=== PATIENT | male | born 1970 | race Caucasian/White ===

== ENCOUNTER 2024-12-30 08:31 | Emergency (ER) | payer OTHER, SELFPAY ==
[2024-12-30 08:41] VITALS: BP 121/84
--- NOTE | 2024-12-30 09:42 | CON.NEURO4 ---
Addendum entered and electronically signed by Agustin Padgett MD 12/31/24 13:04:
I discussed the patient's assessment and management plan with Nurse Practitioner Caitlyn Tran. I also saw and examined the patient on 12/30/2024.
The patient presented with a complaint of right arm numbness that started about 6 days prior to presentation to the ED, and he also developed left-sided headache one day prior to presenting to the ED.
His Neurological examination was normal when he was seen. MRI brain did not show an acute infarct. The patient felt much better prior to discharge after treatment, and a repeat MRI brain in 3 months was recommended to follow up on the left frontal
and left temporal lobe white matter lesions. Also a MRI cervical spine was recommended as an outpatient, given the history that the patient regularly lifts heavy weights. He will also follow up in Neurology clinic in about 4 weeks.
Original Note:
Consultation - Neurology 4
-
CONSULTING PHYSICIAN: Agustin Padgett MD
REFERRING PHYSICIAN: ER/Dr. Lott
DICTATED BY: GUS Herman
DATE/TIME OF REQUEST: 12/30/24
DATE/TIME OF CONSULTATION: 12/30/24
Reason for Consultation: Right arm paresthesias, left-sided headache
History of Present Illness:
This is a 54-year-old right-handed male who has presented to the hospital with report of right arm paresthesias and a left-sided headache. Patient reports that six days ago on 12/23/24 he woke up in the morning and noticed that his right arm was
numb. The numbness included his entire right hand extending up his right arm a few inches past his elbow. This persisted for several days, and then yesterday (12/29/24) around 1500 he reports that he developed a left-sided headache behind his left
eye in addition to left scleral redness. He notes photophobia and mildly blurred vision in his left eye only. His headache worsened this morning, prompting him to come to the ER for evaluation. He denies any dizziness, speech/swallow difficulty, and
weakness. He denies any history of migraines and very rarely gets a headache. He exercises frequently including weight lifting but denies any recent injuries and neck/back pain. He is not taking any blood-thinning medications.
Past Medical History: Diverticulosis.
Surgical History: Denies.
Family History: Denies.
Social History: Former smoker.
Allergies: Ondansetron.
Home Medications: None.
Review of Symptoms:
Patient denies any fever, chest pain, shortness of breath, GI or symptoms.
�Per the HPI.�All systems are reviewed negative except above.
Physical Exam:
The patient is afebrile, abdomen is nondistended, breathing is unlabored
NIH Stroke Scale:
I performed the NIH stroke scale on the patient on 12/30/24 at 0945. The patient scored 1 points on the NIH stroke scale assessment, which were assigned as follows: See below.
Neurologic Examination:
The patient is awake, alert and oriented x 3. He is able to follow commands and answer questions appropriately. There is no aphasia or dysarthria. On cranial nerve assessment, pupils are 3 mm bilateral, round and reactive to light and
accommodation. Left eye sclera is red. Visual camacho are full. Extraocular movements are intact. Facial sensations are intact and bilaterally symmetrical, there is no facial asymmetry. Hearing is intact bilaterally to normal conversation volume.
Tongue palate and uvula are midline. Sternocleidomastoid strengths are full bilaterally. Motor strengths are 5/5 bilateral upper and lower extremities on medical research [place] scale. There is no drift or involuntary movement noted. Sensations of
touch is reduced in the right arm. There was no extinction noted on double simultaneous stimulation. Coordination is intact by finger to nose bilaterally.
Lab Results: See below.
Neuro Imaging: None.
Differentials for the patient's presentation include:
1. Right arm paresthesias and left-sided headache; etiology of symptoms is possibly migraine with aura, although given no history of this cannot entirely exclude small ischemic stroke, demyelinating disease, metabolic disturbance, and less likely
dissection given weight-lifting but absence of headache.
Patient has the following risk factors for their symptoms: None.
IV Tenecteplase/IAT candidacy: He is not a candidate due to symptom onset 6 days ago and low NIHSS.
Recommendations:
-CTA head/neck pending.
-Providing migraine cocktail benadryl, toradol, reglan.
-If symptoms do not resolve, would consider MRI brain with and w/o contrast.
-Checking blood work for metabolic abnormalities.
-Will follow pending results.
Discussed patient care with: Dr. Padgett, Dr. Lott, the patient
Vital Signs and Labs
-
Vital Signs and Labs:
Vital Signs
Temp Pulse Resp BP Pulse Ox
98.7 F 74 18 121/84 97
12/30/24 08:41 12/30/24 08:41 12/30/24 08:41 12/30/24 08:41 12/30/24 08:41
Lab Results
12/30/24 09:41
12/30/24 09:41
Sodium 138 mmol/L (135-145) 12/30/24 09:41
Potassium 4.3 mmol/L (3.5-5.1) 12/30/24 09:41
BUN 15 mg/dl (9-20) 12/30/24 09:41
Glucose 97 mg/dl (70-99) 12/30/24 09:41
Calcium 8.8 mg/dl (8.4-10.2) 12/30/24 09:41
NIH Stroke Score
Subsequent NIH Scale
Date of Subsequent NIH Scale: 12/30/24
Time of Subsequent NIH Scale: 09:45
NIH Stroke Score
Level of Consciousness: 0 - Alert
LOC Questions: 0-Answers both correctly
LOC Commands: 0-Performs both correctly
Best Horizontal Gaze: 0-Normal
Visual Camacho: 0=Normal, no visual loss
Facial Palsy: 0=Normal, symmetrical
Motor - Right Arm: 0=No drift 10 seconds
Motor - Left Arm: 0=No drift 10 seconds
Motor - Right Le-No drift 5 seconds
Motor - Left Le-No drift 5 seconds
Limb Ataxia: 0-Absent
Sensation: 1-Mild loss
Best Language: 0-No aphasia
Dysarthria: 0-Normal
Extinction and Inattention: 0-No abnormality
NIH Total Score:: 1
Modified [place] (mRS) Score
Modified Perez Scale (mRS): No significant disability. Able to carry out usual activities.
Score: 1
Alteplase Contraindication
Inclusion and Exclusion criteria reviewed: Yes
Reasons for NON-Tx with Thrombolytics ABSOLUTE Exclusions: Greater than 4.5 hrs from onset of sxs
IAT Contraindications: NIHSS < 6
[2024-12-30] MEDS: NSS 500 IV (09:45)
[2024-12-30] MEDS: BENADRYL 12.5 MG IV (09:48)
[2024-12-30] MEDS: REGLAN 10 MG IV (09:51)
[2024-12-30] MEDS: TORADOL 15 MG IV (09:54)
[2024-12-30 09:55] LABS: Hematocrit 49.5 % (39.0-52.0); Hemoglobin 16.7 g/dL (13.0-18.0); Mean Corp Hgb Conc. 33.7 g/dL (33.0-37.0); Mean Corpuscular Volume 89.0 fL (80.0-94.0); Nucleated Red Blood Cells % 0 % (-); Platelet Count 250 10^3/uL (130-400); Red Cell Dist. Width 13.2 % (11.5-14.5)
[2024-12-30 10:22] LABS: ALT (SGPT) 21 U/L (0-50); AST (SGOT) 26 U/L (17-59); Albumin 3.9 g/dl (3.5-5.0); Alkaline Phosphatase 49 U/L (38-126); Blood Urea Nitrogen 15 mg/dl (9-20); C-Reactive Protein < 5.00 mg/L (0.0-10.00); Calcium 8.8 mg/dl (8.4-10.2); Carbon Dioxide 28 mmol/L (22-30); Chloride 105 mmol/L (98-107); Glucose 97 mg/dl (70-99); Magnesium 2.0 mg/dl (1.6-2.3); Potassium 4.3 mmol/L (3.5-5.1); Sodium 138 mmol/L (135-145); Total Protein 6.2 g/dl (6.3-8.2); eGFR > 60.00
--- NOTE | 2024-12-30 10:33 | ED.GENMED ---
History of Present Illness
<Myron Lott MD - Last Filed: 12/30/24 13:44>
General
Chief Complaint: Numbness
Source: patient
Exam Limitations: none
Time Seen by Provider: 12/30/24 09:16
Nursing documentation reviewed up to this point in time: agreed with
History of Present Illness
History of Present Illness:
Patient presents to ED secondary to 4-day history of right arm numbness sensation, along with pain behind left eye with redness over the past 24 hours. Denies dizziness. Denies blurred vision. Denies nausea or vomiting. Denies difficulty with
ambulation. Denies weakness. Denies recent illness. Denies neck pain. Denies previous history of similar symptoms. Patient is otherwise healthy and works out at the gym frequently, including weightlifting. Denies injuries.
Review of Systems
<Myron Lott MD - Last Filed: 12/30/24 13:44>
Review of Systems
Allergies reviewed?: Yes
All Other Systems: ROS reviewed and negative except as documented in HPI and ROS
Constitutional: Reports no symptoms
Cardiac: Reports no symptoms
ABD/GI: Reports no symptoms
Musculoskeletal: Reports no symptoms
Skin: Reports no symptoms
Neurological: Reports numbness; Denies dizzy, headache or weakness
Phy Exam
<Myron Lott MD - Last Filed: 12/30/24 13:44>
Physical Exam
Physical Exam:
Physical Exam
General: no apparent distress, not acutely ill. afebrile
Head: nc/at. eomi. perrla. left eye injected conjunctiva noted
Neck: supple. normal range of motion.
Heart: s1/s2 regular rate and rhythm
Lungs: no acute respiratory distress. clear bilaterally
Abdomen: normal bowel sounds. not tender.
Neuro: alert and oriented x 3. Decreased sensation noted over right side of face and RUE. No focal weakness. no facial droop
Skin: no rash
Psychiatric: well kept. interactive and cooperative
Extremities: no edema. no calf tenderness.
Course
<Myron Lott MD - Last Filed: 12/30/24 13:44>
Orders/Labs/Results
Orders:
Orders
12/30/24 09:34
Diphenhydramine [Benadryl] 12.5 mg IV NOW STA
Ketorolac [Toradol] 15 mg IV NOW STA
Metoclopramide [Reglan] 10 mg IV NOW STA
12/30/24 09:35
0.9% Sodium Chloride 500 ml [Nss] 500 ml IV BOLUS
12/30/24 09:41
CBC/With ESR Urgent
CRP [C-Reactive Protein] Urgent
Cardiovascular Evaluation Urgent
Comment: ADD ON
Comprehensive Metabolic Panel Urgent
Ferritin Urgent
Comment: ADD ON
Folate Urgent
Comment: ADD ON
Glycohemoglobin (HgbA1c) Urgent
Magnesium Urgent
TSH Reflex To Free T4 Urgent
Comment: ADD ON
Vitamin B12 Urgent
Comment: ADD ON
12/30/24 10:25
CT Head & Neck Angio W/wo IV Urgent
Comment:
Reason For Exam: headache/RUE numbness w weaknes
12/30/24 11:00
Add On- LAB Routine
Tests Added?: folate, ferritin, TSH reflex, B12, lipid panel, hbA1c
12/30/24 12:31
Acetaminophen [Tylenol] 1,000 mg PO NOW STA
HYDROmorphone [Dilaudid] 0.5 mg IV NOW STA
12/30/24 12:32
MR Brain W/o & With Contrast Routine
Comment:
Reason For Exam: L headache, R arm paresthesias
Recent pill cam endoscopy?: No
Abnormal Lab Results
12/30/24
09:41
Absolute Monos (auto) 0.7 H 10^3/uL
(0.1-0.6)
Monocytes % 11.2 H %
(1.7-9.3)
Total Protein 6.2 L g/dl
(6.3-8.2)
12/30/24 09:41
12/30/24 09:41
Vital Signs
Initial and Last Documented VS:
Initial Vital Signs
Temp Pulse Resp BP Pulse Ox
98.7 F 74 18 121/84 97
12/30/24 08:41 12/30/24 08:41 12/30/24 08:41 12/30/24 08:41 12/30/24 08:41
Last Documented Vital Signs
Temp Pulse Resp BP Pulse Ox
98.7 F 59 15 135/75 99
12/30/24 08:41 12/30/24 14:31 12/30/24 13:27 12/30/24 14:27 12/30/24 14:31
<Willem Morrell, DO - Last Filed: 12/30/24 16:06>
Orders/Labs/Results
Orders:
Orders
12/30/24 09:34
Diphenhydramine [Benadryl] 12.5 mg IV NOW STA
Ketorolac [Toradol] 15 mg IV NOW STA
Metoclopramide [Reglan] 10 mg IV NOW STA
12/30/24 09:35
0.9% Sodium Chloride 500 ml [Nss] 500 ml IV BOLUS
12/30/24 09:41
CBC/With ESR Urgent
CRP [C-Reactive Protein] Urgent
Cardiovascular Evaluation Urgent
Comment: ADD ON
Comprehensive Metabolic Panel Urgent
Ferritin Urgent
Comment: ADD ON
Folate Urgent
Comment: ADD ON
Glycohemoglobin (HgbA1c) Urgent
Magnesium Urgent
TSH Reflex To Free T4 Urgent
Comment: ADD ON
Vitamin B12 Urgent
Comment: ADD ON
12/30/24 10:25
CT Head & Neck Angio W/wo IV Urgent
Comment:
Reason For Exam: headache/RUE numbness w weaknes
12/30/24 11:00
Add On- LAB Routine
Tests Added?: folate, ferritin, TSH reflex, B12, lipid panel, hbA1c
12/30/24 12:31
Acetaminophen [Tylenol] 1,000 mg PO NOW STA
HYDROmorphone [Dilaudid] 0.5 mg IV NOW STA
12/30/24 12:32
MR Brain W/o & With Contrast Routine
Comment:
Reason For Exam: L headache, R arm paresthesias
Recent pill cam endoscopy?: No
Abnormal Lab Results
12/30/24
09:41
Absolute Monos (auto) 0.7 H 10^3/uL
(0.1-0.6)
Monocytes % 11.2 H %
(1.7-9.3)
Total Protein 6.2 L g/dl
(6.3-8.2)
12/30/24 09:41
12/30/24 09:41
Vital Signs
Initial and Last Documented VS:
Initial Vital Signs
Temp Pulse Resp BP Pulse Ox
98.7 F 74 18 121/84 97
12/30/24 08:41 12/30/24 08:41 12/30/24 08:41 12/30/24 08:41 12/30/24 08:41
Last Documented Vital Signs
Temp Pulse Resp BP Pulse Ox
98.7 F 59 15 135/75 99
12/30/24 08:41 12/30/24 14:31 12/30/24 13:27 12/30/24 14:27 12/30/24 14:31
<Myron Lott MD - Last Filed: 12/30/24 13:44>
MDM/Problems Addressed
MDM/Problems Addressed:
Patient evaluated in ED by Dr. Padgett, neurology. Recommends obtaining CT head along with CT angiogram of head and neck. Patient to be reassessed afterwards.
With normal CTA report, neurology recommending MRI brain.
IOP: 12
<Myron Lott MD - Last Filed: 12/30/24 13:44>
*Pulse Oximetry
SaO2: 97
Oxygen Mode of Delivery: Room air
<Willem Morrell DO - Last Filed: 12/30/24 16:06>
*Pulse Oximetry
Patient hypoxic: no
*Critical Care Note
Total Time (30-74mins, 75-104mins- exclusive of procedures): 12
<Willem Morrell DO - Last Filed: 12/30/24 16:06>
Update Note
Update Note:
4 PM signout pending MRI report and evaluation of any fluorescein uptake
No uptake seen on bilateral corneas
MRI reviewed, report reviewed with neurologist, he does not suspect that the findings explain his symptoms recommend a follow-up in 6 months, patient states he feels much better mainly has some numbness and tingling of his right arm, perhaps
radiculopathy, neurologist recommended outpatient MRI of his cervical spine, will discharge with steroids, PCP neurology follow-up ER if worsening symptoms
ED Attending Note
<Myron Lott MD - Last Filed: 12/30/24 13:44>
-
Portions of this chart may have been created with voice recognition software.� Occasional wrong word or��sound alike� substitutions may have occurred due to the inherent limitations of voice recognition software.
Discharge Plan
Departure
Patient Disposition: Home (Routine Discharge)
Date of Disposition: 12/30/24
Time of Disposition: 16:05
Patient with high blood pressure during this ER visit?: No
Condition: Good
Discharge Problem:
Radicular pain in right arm
Instructions: Peripheral Neuropathy (DC)
Prescriptions:
New
prednisone 50 mg tablet
50 mg PO DAILY Qty: 5 0RF
Referrals:
Daisy Vazquez DO [Non-Admitting Privileges, Neurology] - Next open appointment
Gris Jaramillo DO [Family Provider, Family Practice] - Next open appointment
Interventions
Interventions:
*Risk Screen - Suicide Last Done: 12/30/24 08:41
*General Assessment Last Done: 12/30/24 08:41
*Neglect/Abuse Screening Last Done: 12/30/24 08:41
*ED- Fall Risk Assessment Last Done: 12/30/24 10:56
*ED COVID-19 Vaccine History Last Done: 12/30/24 10:56
*ED Influenza Vaccine History Last Done: 12/30/24 10:56
ED- Neurological Assessment Last Done: 12/30/24 10:56
Discharge Date and Time
Print Language: ERITREAN
[2024-12-30 10:55] VITALS: BMI 28.5
[2024-12-30 12:26] LABS: Glycohemoglobin (HgbA1c) 5.2 % (4.0-5.6)
[2024-12-30] MEDS: DILAUDID 0.5 MG IV (12:43)
[2024-12-30] MEDS: TYLENOL 1000 MG PO (12:44)
[2024-12-30 12:46] LABS: Ferritin 84.4 ng/ml (17.9-464.0)
[2024-12-30 13:02] LABS: HDL Cholesterol 44 mg/dl; LDL Cholesterol, Calculated 103 mg/dl; Very Low Density Lipoprotein 7 mg/dl (0-30)
[2024-12-30 13:18] LABS: Folate 8.2 ng/ml (2.76-20); Vitamin B12 574 pg/ml (239-931)
[2024-12-30 14:27] VITALS: BP 135/75
== END 2024-12-30 16:31 | disposition home or self-care (01) ==
LOC: EMR 08:31
PROVIDERS: Emergency Medicine; EMERGENCY PHYSICIAN Emergency Medicine; FAMILY PHYSICIAN Family Medicine
DX: M54.10 Radiculopathy, site unspecified (principal); Z87.891 Personal history of nicotine dependence
CPT/HCPCS: 99291; 96374; 96375 ×3; 96361; 70496; 70498; 70553; 80053; 80061; 82607; 82728; 82746; 83036; 83735; 84443; 85025; 85652; 86140; A9575; Q9967